=== PATIENT | male | born 1965 | race Caucasian/White ===

== ENCOUNTER 2016-07-24 13:51 | Emergency (ER) | payer BC, OTHER ==
[2016-07-24] MEDS ORDERED: RX INFO: IV CONTRAST WAS GIVEN 1 EACH MISC MISCELLANE PRN (14:11)
[2016-07-24] MEDS ORDERED: DIPH,PERTUS(ACELL)TETVAC-LF 0.5 ML VIAL IM ONE (14:15)
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
[2016-07-24] MEDS ORDERED: KETOROLAC 30 MG/ML 1 ML VIAL IVP STA (15:22)
[2016-07-24 15:25] VITALS: RESP 18
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
[2016-07-24 16:10] VITALS: BP 123/73; PULSE 86; TEMP 98.1
== END 2016-07-24 15:50 | disposition home or self-care (01) ==
LOC: EC 13:51
DX: S00.83XA Contusion of other part of head, initial encounter (principal); S09.90XA Unspecified injury of head, initial encounter; S69.91XA Unspecified injury of right wrist, hand and finger(s), initial encounter; V89.2XXA Person injured in unspecified motor-vehicle accident, traffic, initial encounter; R10.9 Unspecified abdominal pain; M54.2 Cervicalgia; F17.200 Nicotine dependence, unspecified, uncomplicated; Z23 Encounter for immunization
CPT/HCPCS: 73110; 72125; 70450; 71260; 74177; 90715; 99285; 96374; J1885; Q9967; 90471